=== PATIENT | male | born 1995 | race Caucasian/White ===

== ENCOUNTER 2020-06-01 17:28 | Emergency (ER) | payer BC, OTHER ==
[~2020-06-01] VITALS: Ht 178 cm; Wt 91.0 kg
--- NOTE | 2020-06-01 17:40 | ED Upper Extremity ---
General Chief Complaint: Upper Extremity Stated Complaint: L WRIST PAIN / INJ Source: patient Exam Limitations: no limitations History of Present Illness Date Seen by Provider: Jun 01, 2020 Time Seen by Provider: 17:38 Initial Comments To ER with left hand pain. He has no pain in the forearm or the wrist. This began after he fell while running. He has a small abrasion to the palm of his hand. Most of his pain is over the thumb. No elbow shoulder or head injury. Onset: just prior to arrival Severity: moderate Pain/Injury Location: left hand Method of Injury: fell Modifying Factors: Worse With Movement Allergies and Home Medications Allergies Coded Allergies: No Known Drug Allergies (Unverified , 06/01/20) Home Medications Hydrocodone/Acetaminophen 1 Each Tablet, 1 TAB PO Q4H PRN for PAIN-MODERATE (5- 7) Prescribed by: WESLEY MUÑOZ on 06/01/201815 Patient Home Medication List Home Medication List Reviewed: Yes Review of Systems Constitutional: see HPI EENTM: see HPI Respiratory: no symptoms reported Cardiovascular: no symptoms reported Genitourinary: no symptoms reported Musculoskeletal: see HPI Skin: no symptoms reported Psychiatric/Neurological: No Symptoms Reported Physical Exam Vital Signs Vital Signs - First Documented 06/01/20 17:36 Temp 35.9 Pulse 72 Resp 16 B/P (MAP) 159/101 (120) Pulse Ox 98 Capillary Refill : Height, Weight, BMI Height: '" Weight: lbs. oz. kg; BMI Method: General Appearance: WD/WN, no apparent distress Neck: non-tender, full range of motion Respiratory: no respiratory distress, no accessory muscle use Elbow/Forearm: normal inspection, non-tender Wrist: Yes normal inspection, Yes non-tender Hand: Left, abrasions, limited ROM, soft tissue tenderness Neurologic/Psychiatric: alert, normal mood/affect, oriented x 3 Skin: normal color, warm/dry Progress/Results/Core Measures Results/Orders My Orders Orders - WESLEY MUÑOZ APRN Hand, Left, 3 Views (06/01/20 17:36) Hydrocodone/Apap 5/325 Tablet (Lortab 5 (06/01/20 18:30) Medications Given in ED Current Medications Medications Dose Ordered Sig/Ines Route Start Time Stop Time Status Last Admin Dose Admin Acetaminophen/ Hydrocodone Bitart 1 ea ONCE ONCE PO 06/01/20 18:30 06/01/20 18:31 06/01/20 18:30 1 EA Vital Signs/I&O 06/01/20 06/01/20 17:36 18:30 Temp 35.9 35.9 Pulse 72 Resp 16 B/P (MAP) 159/101 (120) Pulse Ox 98 Departure Communication (Admissions) X-ray reveals a minimally displaced fracture through the articular surface of the base of the first metacarpal. I will put him in a thumb spica using [employer]. We will have him follow-up with orthopedics. Impression Primary Impression: Metacarpal bone fracture Disposition: HOME, SELF-CARE Condition: Stable Departure-Patient Inst. Decision time for Depature: 18:13 Referrals: JOSR CARBAJAL DO NO,LOCAL PHYSICIAN (PCP) Primary Care Physician CLINT GOLDSTEIN MD, MICHAEL P MD Patient Instructions: Hand Fracture Add. Discharge Instructions: Keep the splint on at all times. Keep it clean and dry. Call an orthopedic surgeon of your choosing tomorrow to make an appointment to be seen within the next week. Pain medication as directed. Keep the hand elevated as much as possible. All discharge instructions reviewed with patient and/or family. Voiced understanding. Scripts Hydrocodone/Acetaminophen (Hydrocodone-Acetamin 5-325 mg) 1 Each Tablet 1 TAB PO Q4H PRN for PAIN-MODERATE (5-7), #14 TAB Prov: WESLEY MUÑOZ APRN 06/01/20 Copy Copies To 1: JOSR CARBAJAL DO; OSCAR GAVIRIA MD, PETER J APRN Jun 01, 2020 17:40
[2020-06-01] MEDS ORDERED: ACHD5005 PO (18:15)
--- NOTE | 2020-06-01 18:21 | Diagnostic Imaging Report ---
INDICATION: Left hand pain EXAM: Three views of the left hand FINDINGS: Three view of the left hand show a fracture at the base of the ulnar side of the 1st metacarpal extending through the articular surface and the proximal medial cortex. IMPRESSION: Nondisplaced fracture of the the base of the 1st metacarpal. Dictated by: Dictated on workstation # [id number]
[2020-06-01] MEDS ORDERED: HYDROcodone/APAP 5 MG/325 MG (LORTAB) TAB PO ONE (18:30)
[2020-06-01 18:37] VITALS: BP 159/111
== END 2020-06-01 18:31 | disposition home or self-care (01) ==
LOC: ER 17:31
DX: S62.235A Other nondisplaced fracture of base of first metacarpal bone, left hand, initial encounter for closed fracture (principal); W01.0XXA Fall on same level from slipping, tripping and stumbling without subsequent striking against object, initial encounter
CPT/HCPCS: 29125; 73130